=== PATIENT | female | born 1975 | race Caucasian/White ===

== ENCOUNTER 2021-09-09 03:23 | Emergency (ER) | payer OTHER ==
[~2021-09-09 03:23] MED LIST: CELEXA40 MG PO; HYDROCHLOROTHIA25 MG PO; IBUPROFEN600 MG PO; LISINOPRIL30 MG PO; METFORMIN HCL500 M1 PO; NORCO 5-325 TA1 EACH PO
[2021-09-09 04:32] LABS: RED BLOOD COUNT 4.68 M/UL (4.00-5.10); WHITE BLOOD COUNT 14.3 K/UL (4.5-11.0)
[2021-09-09 04:56] LABS: BUN/CREATININE RATIO 20 (0-10)
[2021-09-09] MEDS ORDERED: NAPROXEN500 MG PO (10:30)
[2021-09-09] MEDS ORDERED: ZOFRAN 4 MG TAB4 MG PO (10:30)
== END 2021-09-09 10:45 | disposition home or self-care (01) ==
LOC: ER1 03:23
PROVIDERS: Nurse Practitioner
DX: K68.9 Other disorders of retroperitoneum (principal); R10.9 Unspecified abdominal pain; M54.50 Low back pain, unspecified; I10 Essential (primary) hypertension; E11.9 Type 2 diabetes mellitus without complications; Z88.8 Allergy status to other drugs, medicaments and biological substances; F17.210 Nicotine dependence, cigarettes, uncomplicated
CPT/HCPCS: 80053; 81001; 82150; 82550; 82553; 83690; 84484; 85025; 87086; 93005; 96374; 99284; J2405; Q9967

== ENCOUNTER → 2021-09-10 | Outpatient (CLI) | payer OTHER ==
[~2021-09-10] MED LIST changes: +NAPROXEN500 MG PO; +ZOFRAN 4 MG TAB4 MG PO
== END ==
LOC: US 09:34
DX: I89.9 Noninfective disorder of lymphatic vessels and lymph nodes, unspecified (principal)
CPT/HCPCS: 76882